=== PATIENT | female | born 1985 | race Caucasian/White ===

== ENCOUNTER → 2017-05-30 | Outpatient (CLI) | payer BC ==
--- NOTE | ~2017-05-30 | ECHO ---
Transthoracic Echocardiography Report (TTE) Demographics Patient Name RICCI KAPADIA Date of Study 05/30/2017 A Patient Number [id number] Visit Number [id number] Date of 1985 Room Number Gender Female Number Age 31 year(s) Referring Carmencita Lares Professional Bondsman Clem Gannon RDCS, RVT, Physician RD, CAN DRAGGER Physician Interpreting Sadiq Ferris MD Space Operations Physician Supervising Ordering Carmencita Lares MD/MLP Physician Nurse Stress Ball Machine Operator Conclusions Contractility Score Summary Normal Left Ventricular contractility was noted. Summary The estimated left ventricular ejection fraction is 60-65%. Normal biventricular size and function. Normal biatrial size. Trace pulmonic, tricuspid, and mitral regurgitation. Procedure Type of Study TTE procedure:2D Echocardiogram, M-Mode, Doppler , Color Doppler. Procedure Date Date: 05/30/2017 Start: 09:56 AM Study Location: Echo Lab Technical Quality: Adequate visualization Additional Indications:New Murmur Appropriate Use Criteria: 9 Patient Status: Routine Rhythm: NSR HR: 66 bpm BP: 120/77 mmHg M-Mode/2D Measurements LV Diastolic Dimension: 4.67 cm LV Systolic Dimension: 2.95 cm LV Septum Diastolic: 0.64 cm LV PW Diastolic: 0.65 cm AO Root Dimension: 2.2 cm AV Cusp Separation: 1.6 cm RV Diastolic Dimension: 2.83 cm LA Dimension: 3.2 cm LA volume: 38 ml RV Base: 3.3 cm LVOT: 1.7 cm RV Mid: 2.9 cm RV Length: 5.8 cm TAPSE: 3.4 cm TDI-S': 16 cm/s Doppler Measurements AV Peak Velocity: 1.55 m/s MV Peak E-Wave: 1.06 m/s AV Peak Gradient: 9.61 mmHg MV Peak A-Wave: 0.62 m/s LVOT Peak Velocity: 1.17 m/s MV E/A Ratio: 1.7 MV P1/2t: 61 msec TR Velocity:2.47 m/s TR Gradient:24.4 mmHg E' Septal Velocity: 0.12 m/s PV Peak Velocity: 0.97 m/s E' Lateral Velocity: 0.14 m/s PV Peak Gradient: 3.76 mmHg A' Septal Velocity: 0.07 m/s A' Lateral Velocity: 0.06 m/s Findings Left Ventricle Normal left ventricular chamber size, wall thickness, and systolic function. Diastolic assessment reveals normal relaxation. Right Ventricle Normal right ventricular size and function. Left Atrium Normal left atrial size. Right Atrium Normal right atrial size. IVC measures 1.13 cm with inspiratory collapse. Mitral Valve Normal mitral valve structure and function. Aortic Valve Normal aortic valve structure and function. Tricuspid Valve Normal appearing tricuspid valve. Trivial tricuspid regurgitation by color Doppler. Pulmonic Valve Normal pulmonic valve structure and function. Trivial pulmonic valve regurgitation by color Doppler. Pericardial Effusion No evidence of pericardial effusion. Miscellaneous Visualized portions of the aortic root and ascending aorta appear normal in size. Pleural Effusion No evidence of pleural effusion. Contractility Score LV regional wall motion:(0-Non visualized 1-Normal 2-Hypokinesis 3-Akinesis 4-Dyskinesis 5-Aneurysm) Signature dtt: MEAGAN MOORE dtd: 05/30/17 [id number] Physician Self Edit
== END | disposition disaster alternative care site (69) ==
LOC: GCAR 09:36
DX: R01.1 Cardiac murmur, unspecified (principal); I37.1 Nonrheumatic pulmonary valve insufficiency; I36.1 Nonrheumatic tricuspid (valve) insufficiency; I34.0 Nonrheumatic mitral (valve) insufficiency